=== PATIENT | female | born 1955 | race Caucasian/White ===

== ENCOUNTER → 2016-11-17 | Outpatient (CLI) | payer MEDICAID | LOC: RAD 12:07 | PROVIDERS: ATTEND Internal Medicine | DX: R10.31 Right lower quadrant pain (principal) | CPT/HCPCS: 74177; 82565 ==

== ENCOUNTER → 2017-01-14 | Outpatient (CLI) | payer MEDICAID | LOC: WI 10:22 | PROVIDERS: ATTEND Internal Medicine | DX: Z12.31 Encounter for screening mammogram for malignant neoplasm of breast (principal) | CPT/HCPCS: 77067; G0202 ==

== ENCOUNTER → 2017-09-26 | Outpatient (CLI) | payer MEDICAID ==
--- NOTE | 2017-09-26 17:24 | RADIOLOGY REPORT (SQ) ---
EXAM DESCRIPTION: FOOT RIGHT 2 VIEWS COMPLETED DATE/TIME: 09/26/2017 5:08 pm REASON FOR STUDY: PAIN IN RIGHT FOOT M79.671 PAIN IN RIGHT FOOT COMPARISON: None. NUMBER OF VIEWS: Three views. TECHNIQUE: AP, lateral and oblique radiographic images acquired of the right foot. LIMITATIONS: None. FINDINGS: MINERALIZATION: Osteopenia. BONES: No acute fracture or dislocation. No worrisome bone lesions. JOINTS: No effusions. SOFT TISSUES: No soft tissue swelling. No foreign body. OTHER: No other significant finding. IMPRESSION: NEGATIVE STUDY OF THE RIGHT FOOT. NO RADIOGRAPHIC EVIDENCE OF ACUTE INJURY. TECHNICAL DOCUMENTATION: JOB ID: [id number] [employer]- All Rights Reserved
== END ==
LOC: OD 16:32
PROVIDERS: ATTEND Internal Medicine
DX: M79.671 Pain in right foot (principal)

== ENCOUNTER 2017-11-21 20:24 | Emergency (ER) | payer MEDICAID ==
[2017-11-21 21:36] LABS: ABSOLUTE EOSINOPHILS # (AUTO) 0.1 10^3/uL (0.0-0.6); ABSOLUTE LYMPHOCYTES (AUTO) 2.7 10^3/uL (0.5-4.7); ABSOLUTE NEUT (AUTO) 5.4 10^3/uL (1.7-8.2); BASOPHILS % (AUTO) 0.3 % (0-2); HEMATOCRIT 37.5 % (36.0-47.0); HEMOGLOBIN 12.4 g/dL (12.0-15.5); LYMPHOCYTES % (AUTO) 28.8 % (13-45); MEAN CORPUSCULAR HEMOGLOBIN 28.8 pg (27.0-33.4); MEAN CORPUSCULAR HGB CONC 33.1 g/dL (32.0-36.0); MEAN CORPUSCULAR VOLUME 87 fl (80-97); MONOCYTES % (AUTO) 11.4 % (3-13); PLATELET COUNT 177 10^3/uL (150-450); RED BLOOD COUNT 4.31 10^6/uL (3.72-5.28); SEGMENTED NEUTROPHILS % (AUTO) 58.5 % (42-78); TOTAL CELLS COUNTED % (AUTO) 100 %; WHITE BLOOD COUNT 9.2 10^3/uL (4.0-10.5)
[2017-11-21 21:56] LABS: ALANINE AMINOTRANSFERASE 29 U/L (9-52); ALBUMIN 4.3 g/dL (3.5-5.0); ALKALINE PHOSPHATASE 76 U/L (38-126); ANION GAP 6 (5-19); ASPARTATE AMINO TRANSFERASE 22 U/L (14-36); BILIRUBIN,DIRECT 0.1 mg/dL (0.0-0.4); BILIRUBIN,TOTAL 0.4 mg/dL (0.2-1.3); BLOOD UREA NITROGEN 17 mg/dL (7-20); CALCIUM 10.8 mg/dL (8.4-10.2); CARBON DIOXIDE 34 mmol/L (22-30); CHLORIDE 101 mmol/L (98-107); CREATINE KINASE 121 U/L (30-135); GLUCOSE 120 mg/dL (75-110); POTASSIUM 4.5 mmol/L (3.6-5.0); TOTAL PROTEIN 6.7 g/dL (6.3-8.2)
[2017-11-21 22:06] LABS: CREATINE KINASE MB 1.83 ng/mL (<4.55); NT PRO BNP 364 pg/mL (5-900)
[2017-11-21 22:07] LABS: TROPONIN I < 0.012 ng/mL
--- NOTE | 2017-11-21 22:10 | RADIOLOGY REPORT (SQ) ---
EXAM DESCRIPTION: CHEST PA/LAT COMPLETED DATE/TIME: 11/21/2017 9:44 pm REASON FOR STUDY: sob COMPARISON: Chest film 12/22/2012, 08/07/2010 EXAM PARAMETERS: NUMBER OF VIEWS: two views TECHNIQUE: Digital Frontal and Lateral radiographic views of the chest acquired. RADIATION DOSE: NA LIMITATIONS: none FINDINGS: LUNGS AND PLEURA: No opacities, masses or pneumothorax. No pleural effusion. MEDIASTINUM AND HILAR STRUCTURES: Retrocardiac air bubble in a hiatal hernia. HEART AND VASCULAR STRUCTURES: Moderate cardiomegaly, stable BONES: Old healed left clavicle fracture. Bones are osteoporotic without gross thoracic spine compre ssion deformity HARDWARE: None in the chest. OTHER: No other significant finding. IMPRESSION: No acute findings TECHNICAL DOCUMENTATION: JOB ID: [id number] [employer]- All Rights Reserved
[2017-11-21 22:14] VITALS: BP 151/109
--- NOTE | 2017-11-21 22:19 | ER Document Report ---
ED General - General Chief Complaint: Breathing Difficulty Stated Complaint: TROUBLE BREATHING Time Seen by Provider: 11/21/17 21:13 Mode of Arrival: Ambulatory Information source: Friend - Her givers Cannot obtain history due to: Dementia, Mentally challenged Notes: 62-year-old female presents from care facility with concerns of funny breathing. 2 caregivers note that she looks like she is going to vomit and has these rhythmic episodes where she looks like she is breathing hard. They do not admit to any cough or vomiting TRAVEL OUTSIDE OF THE [place] IN LAST 30 DAYS: No - HPI Onset: This afternoon Onset/Duration: Sudden Quality of pain: No pain Severity: Mild Pain Level: Denies Associated symptoms: Other Exacerbated by: Denies Relieved by: Denies Similar symptoms previously: No Recently seen / treated by doctor: No - Related Data Allergies/Adverse Reactions: No Known Allergies Allergy (Verified 12/22/12 11:39) Past Medical History - Social History Smoking Status: Never Smoker Cigarette use (# per day): No Chew tobacco use (# tins/day): No Smoking Education Provided: No Family History: Reviewed & Not Pertinent, Other - Past Medical History Cardiac Medical History: Reports: Hx Hypertension - Immunizations Hx Diphtheria, Pertussis, Tetanus Vaccination: Yes Review of Systems - Review of Systems Notes: REVIEW OF SYSTEMS: CONSTITUTIONAL : Denies fever, chills, or sweats. Denies recent illness. EENT: Denies eye, ear, throat, or mouth pain or symptoms. Denies nasal or sinus congestion or discharge. Denies throat, tongue, or mouth swelling or difficulty swallowing. CARDIOVASCULAR: Denies chest pain. Denies palpitations or racing or irregular heart beat. Denies ankle edema. RESPIRATORY: Breathing GASTROINTESTINAL: Denies abdominal pain or distention. Denies nausea, vomiting , or diarrhea. Denies blood in vomitus, stools, or per rectum. Denies black, tarry stools. Denies constipation. GENITOURINARY: Denies difficulty urinating, painful urination, burning, frequency, blood in urine, or discharge. FEMALE GENITOURINARY: Denies vaginal bleeding, heavy or abnormal periods, irregular periods. Denies vaginal discharge or odor. MUSCULOSKELETAL: Denies back or neck pain or stiffness. Denies joint pain or swelling. SKIN: Denies rash, lesions or sores. HEMATOLOGIC : Denies easy bruising or bleeding. LYMPHATIC: Denies swollen, enlarged glands. NEUROLOGICAL: Denies confusion or altered mental status. Denies passing out or loss of consciousness. Denies dizziness or lightheadedness. Denies headache. Denies weakness or paralysis or loss of use of either side. Denies problems with gait or speech. Denies sensory loss, numbness, or tingling. Denies seizures. PSYCHIATRIC: Denies anxiety or stress. Denies depression, suicidal ideation, or homicidal ideation. ALL OTHER SYSTEMS REVIEWED AND NEGATIVE. PHYSICAL EXAMINATION: GENERAL: Well-appearing, well-nourished and in no acute distress. HEAD: Atraumatic, normocephalic. EYES: Pupils equal round and reactive to light, extraocular movements intact, conjunctiva are normal. ENT: Nares patent, oropharynx clear without exudates. Moist mucous membranes. NECK: Normal range of motion, supple without lymphadenopathy LUNGS: Breath sounds clear to auscultation bilaterally and equal. No wheezes rales or rhonchi. HEART: Regular rate and rhythm without murmurs ABDOMEN: Soft, nontender, nondistended abdomen. No guarding, no rebound. No masses appreciated. Patient is hiccuping Female : deferred Musculoskeletal: Normal range of motion, no pitting or edema. No cyanosis. NEUROLOGICAL:baseline PSYCH: Normal mood, normal affect. SKIN: Warm, Dry, normal turgor, no rashes or lesions noted. Dictation was performed using [employer] voice recognition software Physical Exam - Vital signs Vitals: Temp Pulse Resp BP Pulse Ox 98.6 F 67 20 154/96 H 97 11/21/17 20:39 11/21/17 20:39 11/21/17 20:39 11/21/17 20:39 11/21/17 20:39 Course - Re-evaluation Re-evalutation: 11/21/17 22:53 It appears care facility was concerned about patient's breathing however when I wait in the room until this difficulty breathing occurred the patient is in fact hiccuping and they were concerned that this is her breathing issues. Patient has [place] no respiratory issues workup was completely benign After performing a Medical Screening Examination, I estimate there is LOW risk for ACUTE CORONARY SYNDROME, PULMONARY EMBOLI, RESPIRATORY FAILURE, SEPSIS OR MENINGITIS, thus I consider the discharge disposition reasonable. I have reevaluated this patient multiple times and no significant life threatening changes are noted. The patients caregiver and I have discussed the diagnosis and risks, and we agree with discharging home with close follow-up. We also discussed returning to the Emergency Department immediately if new or worsening symptoms occur. We have discussed the symptoms which are most concerning (e.g., changing or worsening pain, trouble swallowing or breathing, neck stiffness, fever) that necessitate immediate return. - Vital Signs Vital signs: Temp Pulse Resp BP Pulse Ox 98.4 F 67 19 151/109 H 95 11/21/17 22:20 11/21/17 20:39 11/21/17 22:02 11/21/17 22:02 11/21/17 22:02 - Laboratory Result Diagrams: 11/21/17 21:25 11/21/17 21:25 Laboratory results interpreted by me: 11/21/17 21:25 Carbon Dioxide 34 H Glucose 120 H Calcium 10.8 H - Diagnostic Test Radiology reviewed: Image reviewed, Reports reviewed - no acute abnormality Discharge - Discharge Clinical Impression: Hiccup, Difficulty breathing Condition: Stable Disposition: HOME, SELF-CARE Referrals: WILVER YEE MD [Primary Care Provider] - Follow up in 3-5 days
== END 2017-11-21 22:25 | disposition home or self-care (01) ==
LOC: ER 20:24
DX: R06.6 Hiccough (principal); R06.02 Shortness of breath
CPT/HCPCS: 36415; 71046; 80053; 82550; 82553; 83880; 84484; 85025; 99285

== ENCOUNTER → 2018-01-31 | Outpatient (CLI) | payer MEDICAID ==
--- NOTE | 2018-01-31 16:04 | WOMENS IMAGING REPORT ---
EXAM DESCRIPTION: BILAT SCREENING MAMMO W/CAD COMPLETED DATE/TIME: 01/31/2018 10:17 am REASON FOR STUDY: SCREENING MAMMO Z12.31 ENCNTR SCREEN MAMMOGRAM FOR MALIGNANT NEOPLASM OF MICAELA COMPARISON: 2011 to 2016 TECHNIQUE: Standard craniocaudal and mediolateral oblique views of each breast recorded using digita l acquisition. LIMITATIONS: None. FINDINGS: No masses, calcifications or architectural distortion. No areas of suspicion. Read with the assistance of CAD. .[facility] - R2 Cenova Version 1.3 .[facility] Imaging - R2 Cenova Version 1.3 .[facility] - R2 Cenova Version 2.4 .[facility] [place] Cenova Version 2.4 .[facility] [place] - R2 Roll Panner Version 9.2 IMPRESSION: NORMAL MAMMOGRAM. BIRADS 1. BREAST DENSITY: c. The breasts are heterogeneously dense, which may obscure small masses. BIRAD: 1 NEGATIVE RECOMMENDATION: ROUTINE SCREENING COMMENT: The patient has been notified of the results by letter per SA requirements. Additional no tification policies are in place for contacting patient with suspicious or incomplete findings. Quality ID #225: The [employer] recommends an annual screening mammogram for women aged 40 years or over. This facility utilizes a reminder system to ensure that all patients receive reminder letters, and/or direct phone calls for appointments. This includes reminders for routine scr eening mammograms, diagnostic mammograms, or other Breast Imaging Interventions when appropriate. Th is patient will be placed in the appropriate reminder system. The [employer] (ACR) has developed recommendations for screening MRI of the breast s in certain patient populations, to be used in conjunction with mammography. Breast MRI surveillanc e may be appropriate for women with more than 20% lifetime risk of developing breast cancer as deter mined by genetic testing, significant family history of the disease, or history of mantle radiation f or Hodgkins Disease. ACR Practice Guidelines 2008. TECHNICAL DOCUMENTATION: FINDING NUMBER: (1) ASSESSMENT: (1) JOB ID: [id number] [employer]- All Rights Reserved Reading location - IP/workstation name: [email or web address]
== END ==
LOC: WI 09:56
PROVIDERS: ATTEND Internal Medicine
DX: Z12.31 Encounter for screening mammogram for malignant neoplasm of breast (principal)
CPT/HCPCS: 77067

== ENCOUNTER → 2018-02-07 | Outpatient (CLI) | payer MEDICAID ==
[2018-02-07 09:33] LABS: ABSOLUTE EOSINOPHILS # (AUTO) 0.1 10^3/uL (0.0-0.6); ABSOLUTE LYMPHOCYTES (AUTO) 2.1 10^3/uL (0.5-4.7); ABSOLUTE MONOCYTES (AUTO) 0.6 10^3/uL (0.1-1.4); ABSOLUTE NEUT (AUTO) 2.8 10^3/uL (1.7-8.2); BASOPHILS % (AUTO) 0.6 % (0-2); HEMATOCRIT 40.6 % (36.0-47.0); HEMOGLOBIN 13.2 g/dL (12.0-15.5); LYMPHOCYTES % (AUTO) 37.4 % (13-45); MEAN CORPUSCULAR HEMOGLOBIN 28.2 pg (27.0-33.4); MEAN CORPUSCULAR HGB CONC 32.4 g/dL (32.0-36.0); MEAN CORPUSCULAR VOLUME 87 fl (80-97); MONOCYTES % (AUTO) 10.9 % (3-13); PLATELET COUNT 222 10^3/uL (150-450); RED BLOOD COUNT 4.67 10^6/uL (3.72-5.28); RED CELL DISTRIBUTION WIDTH 14.2 % (11.5-14.0); SEGMENTED NEUTROPHILS % (AUTO) 49.1 % (42-78); TOTAL CELLS COUNTED % (AUTO) 100 %; WHITE BLOOD COUNT 5.7 10^3/uL (4.0-10.5)
[2018-02-07 10:38] LABS: CHOLESTEROL 209.66 mg/dL (0-200); DIRECT LDL 118 mg/dL (<100); FREE T4 (FREE THYROXINE) 1.18 ng/dL (0.78-2.19); THYROID STIMULATING HORMONE 1.1 uIU/mL (0.47-4.68); TRIGLYCERIDES 136 mg/dL (<150)
[2018-02-08 11:41] LABS: ALANINE AMINOTRANSFERASE 25 U/L (9-52); ALBUMIN 4.4 g/dL (3.5-5.0); ALKALINE PHOSPHATASE 81 U/L (38-126); ANION GAP 11 (5-19); ASPARTATE AMINO TRANSFERASE 22 U/L (14-36); BILIRUBIN,DIRECT 0.2 mg/dL (0.0-0.4); BILIRUBIN,TOTAL 0.4 mg/dL (0.2-1.3); BLOOD UREA NITROGEN 16 mg/dL (7-20); CALCIUM 10.8 mg/dL (8.4-10.2); CARBON DIOXIDE 32 mmol/L (22-30); CHLORIDE 103 mmol/L (98-107); GLUCOSE 82 mg/dL (75-110); POTASSIUM 4.4 mmol/L (3.6-5.0); SODIUM 145.6 mmol/L (137-145)
== END ==
LOC: OD 08:27
PROVIDERS: ATTEND Internal Medicine
DX: I10 Essential (primary) hypertension (principal)
CPT/HCPCS: 36415; 80053; 80061; 84439; 84443; 85025

== ENCOUNTER → 2018-07-03 | Outpatient (CLI) | payer MEDICAID ==
--- NOTE | 2018-07-03 15:07 | RADIOLOGY REPORT (SQ) ---
EXAM DESCRIPTION: CLAVICLE LEFT COMPLETED DATE/TIME: 07/03/2018 2:50 pm REASON FOR STUDY: FRACTURE OF UNSPEC PART OF LEFT CLAVICLE, SUBSEQUENT ENCOUNTER FOR FRACTURE S42.00 2D FX UNSP PART OF L CLAVICLE, SUBS FOR FX W RAKELN JIMBO COMPARISON: Plain films of the chest dated 08/07/2010 NUMBER OF VIEWS: Two views. TECHNIQUE: Frontal and angled images were acquired of the left clavicle. LIMITATIONS: None. FINDINGS: MINERALIZATION: Normal. BONES: Deformity of the mid distal clavicle related to prior old remote trauma. No acute fracture o r dislocation. SOFT TISSUES: No obvious swelling or foreign body. OTHER: No other significant finding. IMPRESSION: 1. Deformity of the mid distal left clavicle related to prior remote trauma. This repr esents a stable finding since is chest examination dated 08/07/2010. TECHNICAL DOCUMENTATION: JOB ID: [id number] [employer]- All Rights Reserved Reading location - IP/workstation name: [email or web address]
== END ==
LOC: OD 14:29
PROVIDERS: ATTEND Internal Medicine
DX: S42.002D Fracture of unspecified part of left clavicle, subsequent encounter for fracture with routine healing (principal)

== ENCOUNTER 2019-04-09 02:17 | Emergency (ER) | payer MEDICAID ==
[2019-04-09] MEDS ORDERED: NORMAL SALINE 1000 ML 1,000 ML IV ONE (02:39)
[2019-04-09 03:04] LABS: ABSOLUTE EOSINOPHILS # (AUTO) 0.2 10^3/uL (0.0-0.6); ABSOLUTE MONOCYTES (AUTO) 1.3 10^3/uL (0.1-1.4); BASOPHILS % (AUTO) 0.1 % (0-2); EOSINOPHILS % (AUTO) 1.9 % (0-6); HEMOGLOBIN 12.8 g/dL (12.0-15.5); LYMPHOCYTES % (AUTO) 15.9 % (13-45); MEAN CORPUSCULAR HEMOGLOBIN 28.6 pg (27.0-33.4); MEAN CORPUSCULAR HGB CONC 32.9 g/dL (32.0-36.0); MEAN CORPUSCULAR VOLUME 87 fl (80-97); MONOCYTES % (AUTO) 10.1 % (3-13); PLATELET COUNT 177 10^3/uL (150-450); RED BLOOD COUNT 4.49 10^6/uL (3.72-5.28); RED CELL DISTRIBUTION WIDTH 14.4 % (11.5-14.0); TOTAL CELLS COUNTED % (AUTO) 100 %; WHITE BLOOD COUNT 12.5 10^3/uL (4.0-10.5)
[2019-04-09 03:24] LABS: ALANINE AMINOTRANSFERASE 20 U/L (9-52); ALBUMIN 4.3 g/dL (3.5-5.0); ALKALINE PHOSPHATASE 81 U/L (38-126); ANION GAP 9 (5-19); ASPARTATE AMINO TRANSFERASE 20 U/L (14-36); BILIRUBIN,DIRECT 0.2 mg/dL (0.0-0.4); BILIRUBIN,TOTAL 0.3 mg/dL (0.2-1.3); BLOOD UREA NITROGEN 18 mg/dL (7-20); CARBON DIOXIDE 32 mmol/L (22-30); CHLORIDE 102 mmol/L (98-107); GLUCOSE 107 mg/dL (75-110); LIPASE 156.6 U/L (23-300); POTASSIUM 4.3 mmol/L (3.6-5.0); SODIUM 143.1 mmol/L (137-145)
[2019-04-09 03:46] LABS: AMORPHOUS SEDIMENT,URINE TRACE /HPF; APPEARANCE,URINE CLOUDY; BILIRUBIN,URINE NEGATIVE (NEGATIVE); COLOR,URINE YELLOW; GLUCOSE, URINE NEGATIVE (NEGATIVE); KETONES,URINE NEGATIVE (NEGATIVE); LEUKOCYTE ESTERASE,URINE NEGATIVE (NEGATIVE); NITRITE,URINE NEGATIVE (NEGATIVE); PROTEIN,URINE NEGATIVE (NEGATIVE); URINE SPECIFIC GRAVITY 1.011; UROBILINOGEN,URINE NEGATIVE mg/dL (<2.0)
--- NOTE | 2019-04-09 06:17 | RADIOLOGY REPORT (SQ) ---
EXAM: Acute abdomen series CLINICAL DATA: 63-year-old female with abdominal pain, nausea, vomiting and diarrhea TECHNICAL DATA: Three x-ray images of the chest and abdomen were performed including a PA radiograph of the chest as well as supine and upright views of the abdomen. This study was performed on 04/09/2019 at 6:02 AM. Comparison: Prior acute abdomen series performed on 08/12/2012 and prior chest x-ray performed on 11/21/[address] abdomen and pelvis performed on 11/17/2016. FINDINGS: The lungs are well expanded. The cardiac silhouette is stable and mildly enlarged. There is no focal consolidation, pleural effusion or pneumothorax. The costophrenic sulci are clear. There is an old left clavicle fracture. The bowel gas pattern reveals multiple distended but nondilated air-filled loops of small bowel. There are nondifferential air-fluid levels on the upright projection which may indicate an ileus or early small bowel obstruction. Gastroenteritis is not excluded. No high-grade bowel obstruction is identified at this time. There is no evidence of organomegaly. No pathologic calcifications are identified. There is mild scoliosis of the thoracolumbar spine convex to the left. No acute osseous abnormalities are appreciated. IMPRESSION: 1. No evidence of acute intrathoracic disease. 2. Bowel gas pattern suggestive of the small bowel ileus which can be seen with gastroenteritis. A partial or early small bowel obstruction is not entirely excluded. 3. Old left clavicle fracture.
--- NOTE | 2019-04-09 06:40 | EKG REPORT ---
SEVERITY:- ABNORMAL ECG - SINUS RHYTHM BORDERLINE R WAVE PROGRESSION, ANTERIOR LEADS NONSPECIFIC T ABNORMALITIES, INFERIOR LEADS : Confirmed by: Jacky Dejesus MD 09-Apr-2019 06:39:12
[2019-04-09] MEDS ORDERED: ONDANSETRON ODT 4 MG TAB (6 TAB/ER DISP) PO PRN (07:01)
--- NOTE | 2019-04-09 07:07 | ER Document Report ---
ED GI/ - General Chief Complaint: Nausea/Vomiting/Diarrhea Stated Complaint: NAUSEA AND VOMITING Time Seen by Provider: 04/09/19 02:24 Primary Care Provider: WILVER YEE MD [Primary Care Provider] - Follow up as needed Notes: Patient is a 63-year-old female presenting via EMS with complaints of nausea, vo miting and diarrhea. She comes from a alf. A sales representative printing supplies from the alf is with her. prison sales representative printing supplies reports patient has had at least 2 episodes of nausea vomiting and 2 episodes of diarrhea. She has not had any fever. There was a concern by the member of the alf that may be she had blood in her stool as she had very dark-colored stools. They report that patient is nonverbal but is able to answer by nodding her head and does understand. TRAVEL OUTSIDE OF THE [place] IN LAST 30 DAYS: No - Related Data Allergies/Adverse Reactions: No Known Allergies Allergy (Verified 12/22/12 11:39) Past Medical History - General Information source: Legal Guardian, Outside Facility Records - Social History Smoking Status: Never Smoker Frequency of alcohol use: None Drug Abuse: None Family History: Reviewed & Not Pertinent, Other Patient has suicidal ideation: No Patient has homicidal ideation: No - Past Medical History Cardiac Medical History: Reports: Hx Hypertension Renal/ Medical History: Denies: Hx Peritoneal Dialysis Surgical Hx: Negative - Immunizations Hx Diphtheria, Pertussis, Tetanus Vaccination: Yes Review of Systems - Review of Systems Constitutional: No symptoms reported EENT: No symptoms reported Cardiovascular: No symptoms reported Respiratory: No symptoms reported Gastrointestinal: Abdominal pain, Diarrhea, Nausea, Vomiting Genitourinary: No symptoms reported Female Genitourinary: No symptoms reported Musculoskeletal: No symptoms reported Skin: No symptoms reported Hematologic/Lymphatic: No symptoms reported Neurological/Psychological: No symptoms reported Physical Exam - Vital signs Vitals: Resp Pulse Ox 15 97 04/09/19 02:48 04/09/19 02:48 - Notes Notes: PHYSICAL EXAMINATION: GENERAL: Cachectic but in no acute distress HEAD: Atraumatic, normocephalic. EYES: Pupils equal round and reactive to light, extraocular movements intact, conjunctiva are normal. ENT: Nares patent, oropharynx clear without exudates. Moist mucous membranes. NECK: Normal range of motion, supple without lymphadenopathy LUNGS: Breath sounds clear to auscultation bilaterally and equal. No wheezes rales or rhonchi. HEART: Regular rate and rhythm without murmurs. ABDOMEN: Soft, nondistended abdomen. Generalized mild tenderness to palpation. No guarding, no rebound. No masses appreciated. Female : No CVA tenderness. Musculoskeletal: Normal range of motion, no pitting or edema. No cyanosis. NEUROLOGICAL: Cranial nerves grossly intact. PSYCH: Normal mood, normal affect. SKIN: Warm, Dry, normal turgor, no rashes or lesions noted. Course - Re-evaluation Re-evalutation: Patient appears well, nontoxic and vital signs are within normal limits. CBC, CMP and urinalysis are unremarkable. An acute abdomen series was done and shows a possible ileus versus small bowel obstruction. Patient has had no episodes of vomiting while in the emergency department over the last 8 hours. She is also had no episodes of diarrhea. She has been resting comfortably with no distress. Her vital signs have been taken multiple times and remained stable. Discussed case with my attending physician, Dr. Adkins who agrees patient can be discharged home with strict ED return precautions. - Vital Signs Vital signs: Temp Pulse Resp BP Pulse Ox 99 F 20 153/88 H 93 04/09/19 07:05 04/09/19 07:00 04/09/19 07:05 04/09/19 07:00 - Laboratory Result Diagrams: 04/09/19 01:45 04/09/19 01:45 Laboratory results interpreted by me: 04/09/19 04/09/19 04/09/19 01:45 01:45 03:00 WBC 12.5 H RDW 14.4 H Absolute Neutrophils 9.0 H Carbon Dioxide 32 H Urine Ascorbic Acid 20 H Discharge - Discharge Clinical Impression: Vomiting and diarrhea, Gastroenteritis Condition: Stable Disposition: HOME, SELF-CARE Additional Instructions: You have been seen in the Emergency Department (ED) for abdominal pain. Your evaluation did not identify a clear cause of your symptoms but was generally reassuring. Please follow up with your doctor as soon as possible regarding today's emergent visit and the symptoms that are bothering you. Return to the ED if your abdominal pain worsens or fails to improve, you develop bloody vomiting, bloody diarrhea, you are unable to tolerate fluids due to vomiting, fever greater than 101, or other symptoms that concern you. Prescriptions: Ondansetron [Zofran Odt 4 mg Tablet] 1 - 2 tab PO Q4H PRN #15 tab.rapdis PRN Reason: For Nausea/Vomiting Referrals: WILVER YEE MD [Primary Care Provider] - Follow up as needed
[2019-04-09 07:32] VITALS: BP 153/88
--- NOTE | 2019-04-11 07:58 | EKG REPORT ---
SEVERITY:- BORDERLINE ECG - SINUS RHYTHM PROBABLE LEFT ATRIAL ABNORMALITY : Confirmed by: Mini Meek MD 11-Apr-2019 07:57:28
== END 2019-04-09 07:26 | disposition home or self-care (01) ==
LOC: ER 02:17
DX: K52.9 Noninfective gastroenteritis and colitis, unspecified (principal); R11.2 Nausea with vomiting, unspecified; I10 Essential (primary) hypertension
CPT/HCPCS: 93005; 99284; 96360; 96361; 86900; 86901; 36415; 86850; 83690; 85025; 80053; 81001; 84484; 74022; 93010; J7030

== ENCOUNTER → 2020-04-29 | Outpatient (CLI) | payer MEDICAID ==
--- NOTE | 2020-04-29 14:43 | WOMENS IMAGING REPORT ---
EXAM DESCRIPTION: 3D SCREENING MAMMO BILAT IMAGES COMPLETED DATE/TIME: 04/29/2020 11:35 am REASON FOR STUDY: Z12.31 ENCNTR SCREEN MAMMOGRAM FOR MALIGNANT NEOPLASM OF BREAST Z12.31 ENCNTR SCR EEN MAMMOGRAM FOR MALIGNANT NEOPLASM OF MICAELA COMPARISON: Multiple since 2011 EXAM PARAMETERS: Views: Standard craniocaudal and mediolateral oblique views of each breast recorded using digital acquisition and breast tomosynthesis. Read with the assistance of CAD. .[facility] - R2 [employer] Version 9.2 LIMITATIONS: Motion artifact right breast MLO view. Patient is mentally challenged FINDINGS: No suspicious masses, suspicious calcifications or architectural distortion. No areas of c oncern. IMPRESSION: NEGATIVE MAMMOGRAM. BIRADS 1. BREAST DENSITY: b. There are scattered areas of fibroglandular density. BIRAD: ASSESSMENT: 1 NEGATIVE RECOMMENDATION: ROUTINE SCREENING COMMENT: The patient has been notified of the results by letter per MQSA requirements. Additional no tification policies are in place for contacting patient with suspicious or incomplete findings. Quality ID #225: The [employer] recommends an annual screening mammogram for women aged 40 years or over. This facility utilizes a reminder system to ensure that all patients receive reminder letters, and/or direct phone calls for appointments. This includes reminders for routine scr eening mammograms, diagnostic mammograms, or other Breast Imaging Interventions when appropriate. Th is patient will be placed in the appropriate reminder system. TECHNICAL DOCUMENTATION: FINDING NUMBER: (1) ASSESSMENT: (1) JOB ID: [id number] [employer]- All Rights Reserved Reading location - IP/workstation name: [email or web address]
== END ==
LOC: WI 11:00
PROVIDERS: ATTEND Internal Medicine
DX: Z12.31 Encounter for screening mammogram for malignant neoplasm of breast (principal)
CPT/HCPCS: 77063; 77067